=== PATIENT | male | born 1935 | race Caucasian/White ===

== ENCOUNTER 2016-11-14 07:19 | Observation (INO) | payer MEDICARE, OTHER ==
[~2016-11-14] VITALS: Ht 180.3 cm; Wt 130.5 kg
[~2016-11-14 07:19] MED LIST: AMLO5 PO; ECOT81TA2 PO; LEVEMIR SQ; LORTA5 PO; METO25 PO; PROT40TA PO
[2016-11-14] MEDS ORDERED: POVIDONE IODINE 5% (ANTISEPSIS KIT) 4 APPLICATIONS EACH NARE PRN (08:00)
[2016-11-14] MEDS ORDERED: SODIUM CHLORID 0.9% 500 ML IV PRN (08:00)
[2016-11-14] MEDS ORDERED: CHLORHEXIDINE GLUCONATE 2 % 1 PACK (2 CLOTHS) TOPICAL PRN (08:00)
[2016-11-14] MEDS ORDERED: INSULIN HUMAN REGULAR 1,000 UNITS/10 ML VIAL SQ PRN (08:00)
[2016-11-14] MEDS ORDERED: METOPROLOL TARTRATE 25 MG TAB PO PRN (08:00)
[2016-11-14] MEDS ORDERED: LACTATED RINGER'S 1000 ML IV PRN (08:00)
[2016-11-14] MEDS ORDERED: POVIDONE IODINE 7.5% SCRUB 118 ML BOTTLE TOPICAL SCH (08:15)
[2016-11-14] MEDS ORDERED: VANCOMYCIN 1000 MG/NS 250 ML (for <70 kg) IV SCH ×2 (08:15)
[2016-11-14] MEDS ORDERED: ceFAZolin 2 GM PREMIX 50 ML IV SCH (08:15)
[2016-11-14] MEDS ORDERED: NOVOLOGP2 SQ (08:25)
[2016-11-14] MEDS ORDERED: FURO40TA PO (08:25)
[2016-11-14] MEDS ORDERED: CALC0.25 PO (08:25)
[2016-11-14] MEDS ORDERED: FERR1TAB58 PO (08:25)
[2016-11-14] MEDS ORDERED: ATOR20TA15 PO (08:25)
[2016-11-14] MEDS ORDERED: AMLO5TAB2 PO (08:25)
[2016-11-14] MEDS ORDERED: MULT-135 PO (08:25)
[2016-11-14] MEDS ORDERED: GABA100C4 PO ×2 (08:25)
[2016-11-14] MEDS ORDERED: LANTUS2P SQ (08:25)
[2016-11-14] MEDS ORDERED: METO25TA3 PO (08:25)
[2016-11-14] MEDS ORDERED: ASPI-110 PO (08:25)
[2016-11-14] MEDS ORDERED: UMEC1AER INH (08:25)
[2016-11-14] MEDS ORDERED: FAMO1TAB37 PO (08:25)
[2016-11-14 08:29] VITALS: BP 134/69; PULSE 55; RESP 20; TEMP 97.8; O2SAT 96
[2016-11-14] MEDS ORDERED: ePHEDrine/NS 25 MG/5 ML SYR IV ONE (12:00)
[2016-11-14] MEDS ORDERED: PHENYLEPH/NS 1000 MCG/10 ML SYR IV ONE (12:00)
[2016-11-14] MEDS ORDERED: NEOSTIGMINE 3 MG/3 ML SYR IV ONE (12:00)
[2016-11-14] MEDS ORDERED: PROPOFOL 200 MG/20 ML AMP IV ONE (12:00)
[2016-11-14] MEDS ORDERED: MIDAZOLAM HCL 2 MG/2 ML VIAL ONE (12:29)
[2016-11-14] MEDS ORDERED: FAMOTIDINE 20 MG/2 ML VIAL ONE (12:29)
[2016-11-14] MEDS ORDERED: GENTAMICIN SULFATE 80 MG/2 ML VIAL ONE ×2 (12:38→12:40)
[2016-11-14] MEDS ORDERED: BUPIVACAINE/EPINEPHRINE 0.25% 50 ML VIAL ONE (12:40)
[2016-11-14] MEDS ORDERED: DEXTROSE 50% IN WATER 50 ML SYRINGE ONE (12:55)
[2016-11-14] MEDS ORDERED: fentaNYL CITRATE 250 MCG/5 ML AMP ONE (13:42)
[2016-11-14] MEDS ORDERED: ACETAMINOPHEN 1000 MG/100 ML VIAL IV ONE (13:42)
[2016-11-14] MEDS ORDERED: HYDR-3366 PO (15:13)
--- NOTE | 2016-11-14 15:17 | PD.OP ---
cc: Rudy Patino. Operative Report Date of Surgery: November 14, 2016 Preoperative Diagnosis: Right sacroiliitis. Status post extended lumbar fusion Postoperative Diagnosis: Same Procedure: Right sacroiliac joint fusion Anesthesia: Gen. 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 He has had extensive conservative care and has done well with injections. The injections have not lasted a significant period of time. He now presents for staged bilateral sacroiliac joint fusions NOTE: Maritza Raymond PA-C was present for the entire surgical procedure as my first aid director. In my medical opinion her skill and care was necessary for proper management of this patient. COMPANY: [employer] Primary screw: 55 mm. Secondary screw: 40 mm PROCEDURE: The patient was brought the operating room and anesthetized in the supine position. The patient was positioned prone on a Rogerio table. Fluoroscopy was brought in from the opposite side of the table. Inlet view, utlet view and lateral views were taken. Skin markings were prepared. A 1.5 cm incision was made in line with a line from the greater sciatic notch and the cephalad border of the sacrum. We used a starting point that was approximately 1/2-2/3 from the sciatic notch. A pin was then placed across the sacroiliac joint controlling position in the inlet view, outlet view and lateral. The pin was positioned to the edge of the sacroiliac joint and into the sacroiliac joint. A proper tube was utilized. This was then drilled to proper size and a guide tube was fixated to the bone. We used the SImmetry system. We then used a scraper followed by use of a series of cutting devices gaining entrance into the sacroiliac joint and opening and removing cartilaginous material from the sacroiliac joint. Reamings from the drilling was saved and used with demineralized bone matrix. We used the proper size reamers which were deployed to their fullest extent. We then placed bone graft using the bone graft placement device. And then advanced the pin into the ilium. This was measured carefully for proper length screw. We used the drill to go past the other cortex of the sacroiliac joint. We used a primary screw first placing into good position within the sacral ala and in the region of the S1 vertebral body. Position was very satisfactory A second pin was advanced placing it between the first and second sacral foramen. This was checked in the inlet view outlet view and lateral. This was drilled and measured properly for a proper length secondary screw. The secondary screw was positioned without complication. Intraoperative x-rays were obtained. Alignment was satisfactory. The wound was irrigated copiously with antibiotic irrigation. The fascia was closed with interrupted Vicryl suture skin and subcutaneous tissue with 3-0 Vicryl suture followed by Dermabond. The sponge count needle counts and sponge counts were all correct. The patient tolerated the procedure well as taken to the recovery room in satisfactory condition. FINDINGS: There was extensive sacroiliitis. The removal of cartilage material and placement of bone graft was uneventful. Screw position appeared to be very satisfactory. Rudy Patino MD November 14, 2016 15:17
[2016-11-14] MEDS: LACTATED RINGER'S 1000 ML INJ 1,000 ML IV SCH (15:18)
[2016-11-14] MEDS ORDERED: ACETAMINOPHEN/HYDROcodone 325 MG/10 MG TAB PO PRN ×2 (15:30)
[2016-11-14] MEDS ORDERED: TEMAZEPAM 15 MG CAP PO PRN (15:30)
[2016-11-14] MEDS ORDERED: MORPHINE SULFATE 30 MG/30 ML PCA IV SCH (15:30)
[2016-11-14] MEDS ORDERED: NALOXONE HCL 0.4 MG/ML AMP IV PRN (15:30)
[2016-11-14] MEDS ORDERED: BISACODYL 10 MG SUPP RECTAL PRN (15:30)
[2016-11-14] MEDS ORDERED: DEXTROSE 50% IN WATER 50 ML VIAL(D50) IV PRN (15:30)
[2016-11-14] MEDS ORDERED: MAGNESIUM HYDROXIDE SUSP 30 ML CUP PO PRN (15:30)
[2016-11-14] MEDS ORDERED: MORPHINE SULFATE 8 MG/ML INJ IV PUSH PRN (15:30)
[2016-11-14] MEDS ORDERED: GLUCAGON 1 MG/ML VIAL IM/SQ PRN (15:30)
[2016-11-14] MEDS ORDERED: ALUMINUM/MAGNESIUM/SIMETH 30 ML CUP PO PRN (15:30)
[2016-11-14] MEDS ORDERED: Post-op Orders (for Pharmacy) MISC XX ONE (15:30)
[2016-11-14] MEDS ORDERED: SODIUM CHLORIDE 0.9% FLUSH 5 ML FLUSH IVF PRN (15:30)
[2016-11-14] MEDS ORDERED: *morphine SULFATE 8 MG/ML PERIprocedure ONLY ONE (15:30)
[2016-11-14] MEDS ORDERED: DO NOT ADM ANY ANTICOAGULANT DRUGS PRN (15:45)
[2016-11-14 16:00] VITALS: BP_SYST 136; BP_SYST 165; BP_DIAS 63; BP_DIAS 90; PULSE 70; PULSE 72; RESP 18; RESP 20; TEMP 95.3; TEMP 97.9; O2SAT 97; O2SAT 98
[2016-11-14] MEDS: INSULIN NovoLIN REGULAR SUPPLEMENTAL SCALE SQ SCH ×2 (16:00→21:00)
--- NOTE | 2016-11-14 16:15 | RADRPT ---
EXAM DATE/TIME: 11/14/2016 14:37 [facility] COMPARISON: No previous studies available for comparison. INDICATIONS : Right SI joint fusion. MEDICAL HISTORY : None. SURGICAL HISTORY : Back surgery. ENCOUNTER: Initial ACUITY: 1 day PAIN SCORE: Non-responsive. LOCATION: Right SI joint. FINDINGS: Examination of the sacroiliac joint demonstrates screw fixation across the sacroiliac joint. There is felix fixation of the spine. CONCLUSION: Screw fixation of the right sacroiliac joint. Spine fixation as well. Afshin Valentine MD on November 14, 2016 at 16:12 Board Certified Radiologist. This report was verified electronically.
[2016-11-14] MEDS: ONDANSETRON HCL 4 MG/2 ML VIAL IVP PRN (17:34)
[2016-11-14] MEDS: METOPROLOL TARTRATE 25 MG TAB PO SCH (17:41)
[2016-11-14 20:00] VITALS: BP 115/57; PULSE 77; RESP 20; TEMP 96.3; O2SAT 98
[2016-11-14] MEDS ORDERED: GABAPENTIN 100 MG CAP PO SCH (21:00)
[2016-11-14] MEDS ORDERED: ATORVASTATIN 20 MG TAB PO SCH (21:00)
[2016-11-14] MEDS: SODIUM CHLORIDE 0.9% FLUSH 5 ML FLUSH IVF SCH (21:00)
[2016-11-14] MEDS: PCA - TOTAL MG MORPHINE DELIVERED PER SHIFT SCH (22:00)
[2016-11-14] MEDS: amLODIPine BESYLATE 5 MG TAB PO SCH (23:45)
[2016-11-15 00:20] VITALS: BP 114/59; PULSE 78; RESP 16; TEMP 96.6; O2SAT 97
[2016-11-15] MEDS: LACTATED RINGER'S 1000 ML INJ 1,000 ML IV SCH (03:48)
[2016-11-15 04:00] VITALS: BP 117/58; PULSE 79; RESP 16; TEMP 97.2; O2SAT 97
[2016-11-15] MEDS: PCA - TOTAL MG MORPHINE DELIVERED PER SHIFT SCH ×2 (06:00→12:45)
[2016-11-15] MEDS: ONDANSETRON HCL 4 MG/2 ML VIAL IVP PRN (06:27)
[2016-11-15] MEDS: INSULIN NovoLIN REGULAR SUPPLEMENTAL SCALE SQ SCH ×2 (06:37→11:00)
[2016-11-15] MEDS ORDERED: GABAPENTIN 100 MG CAP PO SCH (07:00)
[2016-11-15] MEDS ORDERED: WALKER WHEELS/F1 MIS (07:27)
--- NOTE | 2016-11-15 07:52 | HHI.DCPOC ---
Discharge Care Plan Diagnosis: (1) Sacroiliac inflammation (2) Sacroiliac joint dysfunction of right side Your Health Problems Are: Incision/Drains Swelling Chronic Pain Goals to Promote Your Health * To prevent worsening of your condition and complications * To maintain your health at the optimal level Directions to Meet Your Goals Take your medications as prescribed Follow your dietary instruction Follow activity as directed Keep your appointments as scheduled Take your immunizations and boosters as scheduled If your symptoms worsen call your PCP, if no PCP go to Urgent Care Center or Emergency Room Smoking is Dangerous to Your Health. Avoid second hand smoke Call the 24-hour hour crisis hotline for domestic abuse at Isamar Gillespie November 15, 2016 07:52
--- NOTE | 2016-11-15 07:54 | HHI.DS ---
Discharge Summary Admission Date November 14, 2016 at 15:35 Discharge Date: November 15, 2016 Admitting Diagnosis see below Diagnosis: (1) Sacroiliac inflammation Diagnosis: Principal (2) Sacroiliac joint dysfunction of right side Diagnosis: Principal Procedures Right sacroiliiac joint fusion Brief History This is a 81 year old male patient with a long history of low back pain and previous lumbar fusion. He sought out medical treatment. Imaging studies were performed. Sclerotic changes were seen about both SI joints. Diagnostic and therapeutic SI joint injections were ordered. He was able to get significant pain relief for a few weeks and then the pain returned. Treatment options were discussed. Surgical treatment was recommended and he elected to move forward. Hospital Course Surgical treatment was performed on the day of admission without complication. He recovered well in PACU and was transferred to the orthopaedic floor. Pain was controlled with IV and oral medications. He was compliant with physical therapy and all restrictions including being TTWBing on the right. After 1 day he was found to be stable and discharged home. He was instructed to pursue a high fiber diet for 3-5 days, to continue TTWBing on the right for 4-6 weeks and to begin changing his dressing pod#2. Pt Condition on Discharge: Stable Discharge Disposition: Discharge Home Discharge Instructions Diet Instructions: Diabetic Diet, High Fiber Diet Activities You Can Perform: Toe Touch Weight Bearing Activities to Avoid: Strenuous Activity Additional Activity Instruc.: TTWBing R LE New Medications: Hydrocodone-Acetaminophen (Hustler) 10-325 Mg Tab 1 TAB PO Q4H PRN PAIN #50 Ref 0 TAB Walker with Front Wheels (Walker with Front Wheels) 1 Mis Mis 1 EA .ROUTE DIRECTED #1 Ref 0 EA Continued Medications: Amlodipine (Amlodipine) 5 Mg Tab 5 MG PO BID Blood Pressure Management #30 Ref [address] (Aspirin 81) 81 Mg Tabdr 162 MG PO DAILY Ref 0 TAB Atorvastatin (Atorvastatin) 20 Mg Tab 20 MG PO HS Cholesterol Management #30 Ref 0 TAB Calcitriol (Calcitriol) 0.25 Mcg Cap 0.25 MCG PO mowefr Calcium Supplement #30 Ref 0 CAP Famotidine (Pepcid) 20 Mg Tab 20 MG PO DAILY Indigestion #60 Ref 0 TAB Ferrous Sulfate (Iron) 50 Mg Tab 65 MG PO BID Nutritional Supplement Ref 0 TAB Furosemide (Furosemide) 40 Mg Tab 40 MG PO DAILY #30 Ref 0 TAB Gabapentin (Gabapentin) 100 Mg Cap 100 MG PO AC BREAKFAST #60 Ref 0 CAP Gabapentin (Gabapentin) 100 Mg Cap 200 MG PO HS #30 Ref 0 CAP Insulin Aspart Inj (Novolog Inj) 1,000 Unit/10 Ml Vial 5-25 UNITS SQ ACHS Max dose at bedtime:( )units; sugars less than 70,(0) units; sugars 150-199,(5) units; sugars 200-249,(10) units; sugars 250-299,(15) units; sugars 300-349,(20)units; sugars greater than 349,(25)units Blood Sugar Management #10 Ref 0 ML Insulin Glargine Inj (Lantus Inj) 1,000 Unit/10 Ml Vial 50 UNITS SQ HS Blood Sugar Management Ref 0 VIAL Metoprolol Tartrate (Metoprolol Tartrate) 25 Mg Tab 25 MG PO TID #60 Ref 0 TAB Multiple Vitamin (Multi Vitamin) 1 Tab Tab 1 TAB PO DAILY TAB Umeclidinium-Vilanterol Inh (Anoro Ellipta Inh) 62.5-25 Mcg/Act Aero 1 PUFF INH DAILY COPD #1 Ref 0 INHALER Isamar Gillespie November 15, 2016 07:53
--- NOTE | 2016-11-15 07:56 | PD.ORT.PN ---
Subjective Subjective Remarks Did 'ok' last night. Some right buttock and thigh pain but no new radiating leg pain. Aching but 'tolerable'. Frustrated with some delays yesterday but did well last night. No new CP or SOB. No other complaints. Objective Vitals Vital Signs Date Time Temp Pulse Resp B/P Pulse Ox O2 Delivery O2 Flow Rate FiO2 11/15/16 06:00 18 11/15/16 04:00 97.2 79 16 117/58 97 11/15/16 00:20 96.6 78 16 114/59 97 11/14/16 22:00 18 11/14/16 20:00 96.3 77 20 115/57 98 11/14/16 16:15 65 14 128/59 98 Nasal Cannula 3 11/14/16 16:04 22 11/14/16 16:00 67 14 125/62 97 Nasal Cannula 3 11/14/16 16:00 95.3 72 18 136/63 97 11/14/16 15:45 66 19 122/61 97 Nasal Cannula 3 11/14/16 15:30 65 18 118/58 98 Nasal Cannula 3 11/14/16 15:10 97.5 69 18 148/69 100 Nasal Cannula 3 11/14/16 08:29 97.8 55 20 134/69 96 I/O 11/14/16 11/14/16 11/14/16 11/15/16 11/15/16 11/15/16 07:00 15:00 23:00 07:00 15:00 23:00 Intake Total 1480 ml 480 ml Output Total 400 ml 700 ml Balance 1080 ml -220 ml Intake Oral 480 ml 480 ml Other 1000 ml Output Urine Total 250 ml 500 ml Emesis 100 ml 200 ml Estimated Blood Loss 50 ml # Voids 1 Procedures Right sacroiliiac joint fusion Objective Remarks Laying in bed, NAD VSS RLE Buttock/hip dressing c/d/i, no drainage, mild swelling and warmth, no erythema +motor at/ehl, +sens, +nvi thigh and calf supple, neg homans Assessment & Plan Ortho Post Op Day #: 1 Problem List: (1) Sacroiliac inflammation (2) Sacroiliac joint dysfunction of right side Assessment and Plan pod#1 s/p R SI joint fusion Ortho stable. Ok to s/c home today after PT. TTWBing RLE for 4-6 weeks postop. Needs front-wheeled walker. Dry dressing changes beginning pod#2. He can shower at that time. PO pain meds as needed. F/U in 2 weeks as scheduled. No HHC needed. Isamar Gillespie November 15, 2016 07:56
[2016-11-15 08:00] VITALS: BP 126/60; PULSE 68; RESP 20; TEMP 96.9; O2SAT 94
[2016-11-15] MEDS: amLODIPine BESYLATE 5 MG TAB PO SCH (08:44)
[2016-11-15] MEDS: METOPROLOL TARTRATE 25 MG TAB PO SCH ×2 (08:44→12:45)
[2016-11-15] MEDS: SODIUM CHLORIDE 0.9% FLUSH 5 ML FLUSH IVF SCH (08:44)
[2016-11-15] MEDS ORDERED: FUROSEMIDE 40 MG TAB PO SCH (09:00)
[2016-11-15] MEDS ORDERED: UMECLIDINIUM 62.5 MCG/VILANTEROL 25 MCG INHALER INH SCH (09:00)
[2016-11-15] MEDS ORDERED: FAMOTIDINE 20 MG TAB PO SCH (09:00)
[2016-11-15 09:42] VITALS: O2SAT 93
[2016-11-15 12:00] VITALS: BP 125/60; PULSE 79; RESP 19; TEMP 97.8; O2SAT 92
[2016-11-15] MEDS ORDERED: MULTIVITAMINS/MINERALS THERAPEUTIC TAB PO SCH (21:00)
[2016-11-15] MEDS ORDERED: DOCUSATE SODIUM 100 MG CAP PO SCH (21:00)
== END 2016-11-15 13:40 | disposition home or self-care (01) ==
LOC: HSDC 07:19 → INTOOBSV 15:35 → HSDI 15:35 → N06B 16:27
PROVIDERS: ADMIT Orthopaedic Surgery Orthopaedic Surgery of the Spine; ATTEND Orthopaedic Surgery Orthopaedic Surgery of the Spine
DX: M46.1 Sacroiliitis, not elsewhere classified (principal); M47.898 Other spondylosis, sacral and sacrococcygeal region; E11.40 Type 2 diabetes mellitus with diabetic neuropathy, unspecified; I10 Essential (primary) hypertension; J44.9 Chronic obstructive pulmonary disease, unspecified; E66.9 Obesity, unspecified; Z68.41 Body mass index [BMI] 40.0-44.9, adult; Z98.1 Arthrodesis status
CPT/HCPCS: 27280; 72200; 76000; 82948; 94150; 97163; C1713; G0378; G8987; G8988; J0131; J0690; J1580; J2250; J2270; J2370; J2405; J2710; J3010; J7120

== ENCOUNTER → 2017-03-11 | Day surgery (SDC) | payer OTHER ==
[~2017-03-11] VITALS: Ht 172.7 cm; Wt 124.5 kg
[~2017-03-11] MED LIST changes: -AMLO5 PO; +AMLO5TAB2 PO; +ASPI-110 PO; +ATOR20TA15 PO; +BETAMETHASONE SOD PHOS/ACETATE SUSP 30 MG/5 ML VIAL ONE; +BUPIVACAINE/EPINEPHRINE 0.25% 50 ML VIAL ONE; +CALC0.25 PO; +CHLORHEXIDINE GLUCONATE 2 % 1 PACK (2 CLOTHS) TOPICAL PRN; -ECOT81TA2 PO; +FAMO1TAB37 PO; +FERR1TAB58 PO; +FERR325T8 PO; +FURO40TA PO; +GABA100C4 PO; +GENTAMICIN SULFATE 80 MG/2 ML VIAL ONE; +HYDR-3366 PO; +INSULIN HUMAN REGULAR 1,000 UNITS/10 ML VIAL SQ PRN; +LACTATED RINGER'S 1000 ML IV PRN; +LANTUS2P SQ; -LEVEMIR SQ; -LORTA5 PO; -METO25 PO; +METO25TA3 PO; +METOPROLOL TARTRATE 25 MG TAB PO PRN; +MULT-135 PO; +NOVOLOGP2 SQ; +ONCETAB7 PO; +POVIDONE IODINE 5% (ANTISEPSIS KIT) 4 APPLICATIONS EACH NARE PRN; +POVIDONE IODINE 7.5% SCRUB 118 ML BOTTLE TOPICAL SCH; -PROT40TA PO; +SODIUM CHLORID 0.9% 500 ML IV PRN; +UMEC1AER INH; +VANCOMYCIN 1000 MG/NS 250 ML (for <70 kg) IV SCH; +WALKER WHEELS/F1 MIS; +ceFAZolin 2 GM PREMIX 50 ML IV SCH
--- NOTE | 2017-03-11 06:59 | MH ---
cc: MIK JACKSON DATE OF ADMISSION 03/11/2017 ADMISSION DIAGNOSIS Left sacroiliitis. HISTORY This is an 81-year-old male status post previous lumbar fusion who had done well. The patient developed debilitating bilateral sacroiliac joint disease with evidence of bilateral sacroiliitis. He had a right sacroiliac joint fusion and now presents for staged left sacroiliac joint fusion. PAST MEDICAL HISTORY, SOCIAL HISTORY AND FAMILY HISTORY/REVIEW OF SYSTEMS See attached notes. PHYSICAL EXAMINATION GENERAL: An 81-year-old male in moderate distress with his left posterior hip and leg. HEENT: Normocephalic, atraumatic. Pupils equal, round, reactive to light and accommodation. Extraocular motions intact. NECK: Neck is supple. CHEST: Chest is clear. HEART: Regular rate and rhythm. ABDOMEN: Soft, nontender, normoactive bowel sounds. MUSCULOSKELETAL: Thoracolumbar spine restricted motion, pain with range of motion, well-healed incision. Left sacroiliac joint tender to palpation. Positive Brijesh's maneuver with figure four testing. Positive Gaenslen's maneuver and thigh thrust. Motor examination is normal. IMPRESSION 1. Left sacroiliitis. 2. Status post extended lumbar fusion. PLAN Left sacroiliac joint fusion with internal fixation and bone grafting. CONSENT The risks of surgery including infection, bleeding, loss of motion, continued pain, need for further surgery, neurologic, vascular injury. The patient understands these risks and wishes to press on with surgery as outlined above. MD BHAVANI Yoo/GAGE /10:31 PM /6:54 AM
[2017-03-11 08:30] VITALS: BP 123/73; PULSE 70; RESP 16; TEMP 98; O2SAT 96
--- NOTE | 2017-03-11 14:05 | EKG ---
Date Performed: 03/11/2017 Time Performed: 06:50:00 PTAGE: 81 years EKG: Sinus rhythm WITH HIGH GRADE AV BLOCK PATTERN CONSISTENT WITH PULMONARY DISEASE INFERIOR MYOCARDIAL INFARCTION , OF INDETERMINATE AGE WITH POSTERIOR EXTENSION ABNORMAL ECG PREVIOUS TRACING : 09/23/2015 15.52 Rate has slowed significantly since the prior tracing with possible escaped beats. Baseline artifact precludes accurate evaluation of underlying rhythm. Clinica l correlation strongly recommended. DOCTOR: Jamshid Villasenor Interpretating Date/Time 03/11/2017 14:02:14
== END | disposition home or self-care (01) ==
LOC: HSDC 05:25
PROVIDERS: ATTEND Orthopaedic Surgery Orthopaedic Surgery of the Spine
DX: M46.1 Sacroiliitis, not elsewhere classified (principal); L03.115 Cellulitis of right lower limb; Z53.09 Procedure and treatment not carried out because of other contraindication; I44.2 Atrioventricular block, complete; E11.9 Type 2 diabetes mellitus without complications; E78.5 Hyperlipidemia, unspecified; I12.9 Hypertensive chronic kidney disease with stage 1 through stage 4 chronic kidney disease, or unspecified chronic kidney disease; N18.4 Chronic kidney disease, stage 4 (severe); K21.9 Gastro-esophageal reflux disease without esophagitis; G47.30 Sleep apnea, unspecified; J44.9 Chronic obstructive pulmonary disease, unspecified; E66.9 Obesity, unspecified; Z68.41 Body mass index [BMI] 40.0-44.9, adult; Z79.82 Long term (current) use of aspirin; Z79.4 Long term (current) use of insulin; Z79.51 Long term (current) use of inhaled steroids; Z79.899 Other long term (current) drug therapy
CPT/HCPCS: 82948; 93005; G0463; J3370; J7050; J7120; 99211; J0702; J1580